=== PATIENT | male | born 1950 | race Caucasian/White ===

== ENCOUNTER 2019-04-13 08:00 | Inpatient (IN) | payer OTHER ==
[2019-04-08 12:18] VITALS: BMI 26.6
--- NOTE | 2019-04-13 08:03 | HP ---
Satellite [facility] - Chief Complaint Chief Complaint: left knee pain - Past Medical History Allergies/Adverse Reactions: Allergies Allergy/AdvReac Type Severity Reaction Status Date / Time No Known Drug Allergies Allergy Verified 04/08/19 12:11 - Current Medications Current Medications: Home Medications Medication Instructions Recorded NK [No Known Home Medication] 04/08/19 Satellite Physical Exam - Physical Examination General Appearance: Well Nourished, Well Developed, Alert & Oriented x3 ENT: Clear Lung: Normal air movement Heart: Regular rate & rhythm Extremities: Other (left knee- +swelling, + ttp ,decr rom, nvi xrays show grade 4 tricompartmental djd) Neurological: Intact, Alert, Oriented Satellite Impression/Plan - Impression/Plan Impression: left knee djd Operative Procedure: left fernando tkr Date to be Performed: 04/13/19
[2019-04-13] MEDS ORDERED: CEFAZOLIN 1 GM/D5W 1 GM/50 ML BAG IVPB ONE (10:34)
[2019-04-13] MEDS ORDERED: GABAPENTIN 300 MG CAPSULE (FP) PO ONE (10:34)
[2019-04-13] MEDS ORDERED: oxyCODONE HCL 10 MG SUSTAINED ACTING TABLET PO ONE (10:34)
[2019-04-13] MEDS ORDERED: CELECOXIB 200 MG CAPSULE PO ONE (10:34)
[2019-04-13] MEDS ORDERED: TRANEXAMIC ACID 1000 MG/10 ML VIAL IVPUSH ONE (10:34)
[2019-04-13] MEDS ORDERED: oxyCODONE HCL 10 MG SUSTAINED ACTING TABLET ONE (11:02)
[2019-04-13] MEDS ORDERED: GABAPENTIN 300 MG CAPSULE (FP) ONE (11:02)
[2019-04-13] MEDS ORDERED: CELECOXIB 200 MG CAPSULE ONE (11:02)
[2019-04-13] MEDS ORDERED: ceFAZolin SODIUM 1 GM VIAL ONE ×2 (11:59→12:23)
[2019-04-13] MEDS ORDERED: TRANEXAMIC ACID 1000 MG/10 ML VIAL ONE (11:59)
[2019-04-13] MEDS ORDERED: BUPIVACAINE LIPOSOME/PF (EXPAREL) 266 MG/20 ML VIAL ONE (12:10)
[2019-04-13] MEDS ORDERED: MIDAZOLAM HCL 2 MG/2 ML SINGLE DOSE VIAL ONE (12:10)
[2019-04-13] MEDS ORDERED: VANCOMYCIN 1,000 MG VIAL (RESTRICTED TO ID ONLY) ONE ×2 (12:23→14:54)
[2019-04-13] MEDS ORDERED: PROPOFOL 20 ML ONE (13:34)
[2019-04-13] MEDS ORDERED: ONDANSETRON 4 MG/2 ML VIAL IVPUSH PRN ×2 (13:55→15:30)
[2019-04-13] MEDS ORDERED: oxyCODONE HCL 5 MG TABLET PO PRN (13:55)
[2019-04-13] MEDS ORDERED: ACETAMINOPHEN 325 MG TABLET (FP) PO SCH (14:00)
[2019-04-13] MEDS ORDERED: LACTATED RINGERS SOLUTION 1,000 ML IV SCH ×2 (14:00→15:30)
[2019-04-13] MEDS ORDERED: VANCOMYCIN 1,000 MG VIAL (RESTRICTED TO ID ONLY) IVPB ONE (15:01)
[2019-04-13] MEDS ORDERED: MAG HYDROX/AL HYDROX/SIMETH 30 ML UNIT-DOSE CUP PO PRN (15:30)
[2019-04-13] MEDS ORDERED: MAGNESIUM HYDROX 2400MG/30ML ORAL SUSPENSION 30 ML CUP PO PRN (15:30)
--- NOTE | 2019-04-13 15:32 | OP ---
Operative Note - Note: Operative Date: 04/13/19 (sapna) Pre-Operative Diagnosis: left knee djd Operation: left fernando tkr Post-Operative Diagnosis: Same as Pre-op Surgeon: Feliciano Reddy Final Block Press Operator: Aj Seymour Anesthesiologist/ECHOCARDIOGRAPH TECHNICIAN: Manuel Ceja Anesthesia: Spinal, Local Specimens Removed: bone fragments Estimated Blood Loss (mls): 100 Operative Report Dictated: Yes
[2019-04-13] MEDS ORDERED: ACETAMINOPHEN 325 MG TABLET (FP) ONE (16:58)
--- NOTE | 2019-04-13 17:56 | CONSULT ---
Consult Consult Specialty:: IM Reason for Consultation:: post-op medical management - History of Present Illness Chief Complaint: left knee pain History of Present Illness: 69 yo man with chronic left knee DJD, getting worse recently, came in for TKR with Dr Feliciano Reddy. denies chest pain, palpitations, nausea, vomiting, diarrhea. - History Source History Provided By: Patient, Family Member Limitations to Obtaining History: No Limitations - Alcohol/Substance Use Hx Alcohol Use: Yes (SOCIALLY) - Smoking History Smoking history: Never smoked Have you smoked in the past 12 months: No Home Medications - Allergies Allergies/Adverse Reactions: Allergies Allergy/AdvReac Type Severity Reaction Status Date / Time No Known Drug Allergies Allergy Verified 04/08/19 12:11 - Home Medications Home Medications: Ambulatory Orders Aspirin [ASA -] 325 mg PO DAILY@0800 tablet 04/13/19 Oxycodone HCl/Acetaminophen [Percocet 5-325 mg Tablet -] 1 - 2 tab PO Q6H #50 tab MDD 8 04/13/19 Review of Systems - Review of Systems Constitutional: reports: No Symptoms Eyes: reports: No Symptoms HENT: reports: No Symptoms Neck: reports: No Symptoms Cardiovascular: reports: No Symptoms Respiratory: reports: No Symptoms Gastrointestinal: reports: No Symptoms Genitourinary: reports: No Symptoms Musculoskeletal: reports: Joint Pain (left knee pain) Integumentary: reports: No Symptoms Neurological: reports: No Symptoms Endocrine: reports: No Symptoms Hematology/Lymphatic: reports: No Symptoms Psychiatric: reports: No Symptoms Pain Intensity: 7 Physical Exam Vital Signs: Vital Signs Temperature 98.2 F 04/13/19 16:40 Pulse Rate 64 04/13/19 16:40 Respiratory Rate 14 04/13/19 16:40 Blood Pressure 129/68 04/13/19 16:40 O2 Sat by Pulse Oximetry (%) 99 04/13/19 16:40 Constitutional: Yes: Well Nourished, No Distress, Calm Eyes: Yes: WNL HENT: Yes: WNL Neck: Yes: WNL Cardiovascular: Yes: WNL Respiratory: Yes: WNL Gastrointestinal: Yes: WNL Renal/: Yes: WNL Musculoskeletal: Yes: Joint Stiffness Extremities: Yes: WNL Edema: No Peripheral Pulses WNL: Yes Wound/Incision: Yes: Clean/Dry, Well Approximated, Dressing Dry and Intact Neurological: Yes: WNL ...Motor Strength: WNL Assessment/Plan 68 yo man with left knee djd came in for left fernando tkr with Dr Reddy. no complications. cont pain management, incentive spirometry. on aspirin, oxycodone, tylenol. -GI, DVT prophylaxis. -PT/OT/OOB as tolerated. -ID: covered with Ancef -on stool softeners for opioid induced constipation. -awaiting labs -assessment and plan discussed with Pt, , and daughter at bedside. -DC planned for if no complications please call me at [phone] with any concerns
[2019-04-13] MEDS: oxyCODONE HCL 10 MG SUSTAINED ACTING TABLET PO SCH (21:21)
[2019-04-13] MEDS: SENNOSIDES/DOCUSATE COMBO (SENNA PLUS) TABLET (UD) PO SCH (21:21)
[2019-04-13] MEDS: CEFAZOLIN 1 GM/D5W 1 GM/50 ML BAG IVPB SCH (21:22)
[2019-04-13] MEDS: GABAPENTIN 300 MG CAPSULE (FP) PO SCH (21:22)
[2019-04-13] MEDS: oxyCODONE HCL 5 MG TABLET PO PRN (21:23)
[2019-04-14] MEDS: ACETAMINOPHEN 325 MG TABLET (FP) PO SCH ×4 (00:31→18:17)
[2019-04-14] MEDS: CEFAZOLIN 1 GM/D5W 1 GM/50 ML BAG IVPB SCH (06:47)
[2019-04-14] MEDS: oxyCODONE HCL 5 MG TABLET PO PRN ×2 (06:48→18:16)
[2019-04-14] MEDS: ASPIRIN 325 MG TABLET PO SCH (08:31)
[2019-04-14 08:37] LABS: HEMATOCRIT 36.7 % (35.4-49); HEMOGLOBIN 12.6 GM/dl (11.7-16.9); MCH 30.7 pg (25.7-33.7); MCHC 34.4 g/dl (32.0-35.9); MEAN CELL VOLUME 89.4 fl (80-96); PLATELET COUNT 149 K/MM3 (134-434); RDW 13.3 % (11.9-15.9); WHITE BLOOD COUNT 10.1 K/mm3 (4.0-10.8)
--- NOTE | 2019-04-14 10:01 | PN ---
Progress Note (short form) - Note Progress Note: Ortho Pt seen and examined s/p left fernando tkr pod #1 Selected Entries 04/14/19 03:00 Temperature 97.9 F Pulse Rate 66 Respiratory 18 Rate Blood Pressure 125/62 Laboratory Tests 04/14/19 07:30 WBC 10.1 Hgb 12.6 Hct 36.7 Plt Count 149 dressing c/d/i, calf soft, nt rom 0-70, nvi a/p PT dvt ppx pain control d/c home tomorrow if stable
[2019-04-14] MEDS: MULTIVITAMINS (DAILY MVI) TABLET (FP) PO SCH (10:39)
[2019-04-14] MEDS: oxyCODONE HCL 10 MG SUSTAINED ACTING TABLET PO SCH ×2 (10:40→21:41)
[2019-04-14] MEDS: GABAPENTIN 300 MG CAPSULE (FP) PO SCH ×2 (10:40→21:40)
[2019-04-14] MEDS: SENNOSIDES/DOCUSATE COMBO (SENNA PLUS) TABLET (UD) PO SCH ×2 (10:40→21:40)
[2019-04-14] MEDS: PANTOPRAZOLE 40 MG TABLET (FP) PO SCH (10:43)
--- NOTE | 2019-04-14 14:48 | PN ---
Progress Note, Physician Chief Complaint: right knee pain History of Present Illness: 69 yo man with chronic left knee DJD, getting worse recently, came in for TKR with Dr Feliciano Reddy. denies chest pain, palpitations, nausea, vomiting, diarrhea. - Current Medication List Current Medications: Active Medications Acetaminophen (Tylenol -) 650 mg PO Q6H [facility] Last Admin: 04/14/19 12:08 Dose: 650 mg Al Hydroxide/Mg Hydroxide (Mylanta Oral Suspension -) 30 ml PO Q4H PRN PRN Reason: DYSPEPSIA Aspirin (Asa -) 325 mg PO DAILY@0800 [facility] Last Admin: 04/14/19 08:31 Dose: 325 mg Fentanyl (Sublimaze Injection -) 50 mcg IVPUSH [id number] PRN PRN Reason: PAIN-PACU ORDER X 4 DOSES ONLY Gabapentin (Neurontin -) 300 mg PO BID [facility] Last Admin: 04/14/19 10:40 Dose: 300 mg Magnesium Hydroxide (Milk Of Magnesia -) 30 ml PO PRN PRN PRN Reason: CONSTIPATION Multivitamins/Minerals/Vitamin C (Tab-A-Vit -) 1 tab PO DAILY [facility] Last Admin: 04/14/19 10:39 Dose: 1 tab Ondansetron HCl (Zofran Injection) 4 mg IVPUSH Q6H PRN PRN Reason: NAUSEA AND/OR VOMITING Ondansetron HCl (Zofran Injection) 4 mg IVPUSH Q6H PRN PRN Reason: NAUSEA Oxycodone HCl (Roxicodone -) 5 mg PO Q3H PRN PRN Reason: PAIN LEVEL 1-5 Last Admin: 04/14/19 06:48 Dose: 5 mg Oxycodone HCl (Roxicodone -) 10 mg PO Q3H PRN PRN Reason: PAIN LEVEL 6-10 Oxycodone HCl (Oxycontin -) 10 mg PO BID [facility] Stop: 04/16/19 13:55 Last Admin: 04/14/19 10:40 Dose: 10 mg Pantoprazole Sodium (Protonix -) 40 mg PO DAILY [facility] Last Admin: 04/14/19 10:43 Dose: 40 mg Senna/Docusate Sodium (Pericolace -) 2 tablet PO BID [facility] Last Admin: 04/14/19 10:40 Dose: 2 tablet - Objective Vital Signs: Vital Signs Temperature 98.6 F 04/14/19 13:58 Pulse Rate 75 04/14/19 13:58 Respiratory Rate 18 04/14/19 13:58 Blood Pressure 147/68 04/14/19 13:58 O2 Sat by Pulse Oximetry (%) 99 04/14/19 13:58 Constitutional: Yes: Well Nourished, No Distress, Calm Eyes: Yes: WNL HENT: Yes: WNL Neck: Yes: WNL Cardiovascular: Yes: WNL Respiratory: Yes: WNL Gastrointestinal: Yes: WNL Genitourinary: Yes: WNL Musculoskeletal: Yes: Joint Stiffness Extremities: Yes: WNL Edema: No Peripheral Pulses WNL: Yes Integumentary: Yes: WNL Wound/Incision: Yes: Clean/Dry, Well Approximated, Dressing Dry and Intact Neurological: Yes: WNL ...Motor Strength: WNL Psychiatric: Yes: WNL Labs: CBC, BMP 04/14/19 07:30 Assessment/Plan 68 yo man with left knee djd came in for left fernando tkr with Dr Reddy. no complications. cont pain management, incentive spirometry. on aspirin, oxycodone, tylenol. -GI, DVT prophylaxis. -PT/OT/OOB as tolerated. -ID: covered with Ancef -on stool softeners for opioid induced constipation. -awaiting labs -assessment and plan discussed with Pt, , and daughter at bedside. meds and blood work reviewed -DC planned for Tomorrow please call me at [phone] with any concerns
--- NOTE | 2019-04-14 16:58 | SPEC ---
DATE OF OPERATION: 04/13/2019 PREOPERATIVE DIAGNOSIS: Degenerative joint disease, left knee. POSTOPERATIVE DIAGNOSIS: Degenerative joint disease, left knee. PROCEDURE: Left total knee replacement with robotic-assisted navigation (Makoplasty). SURGICAL ATTENDING: Feliciano Reddy M.D. DIE CASTING SUPERVISOR: Gail Sanderson ANESTHESIA: Regional and spinal. CLOSURE: A Triathlon cemented total knee system with a 5 femur, 5 tibia, 11 polyethylene, 35 patella, number 1 Vicryl fascia, 0 and 2-0 subcutaneous, 3-0 Monocryl subcuticular with skin glue for skin, 4-0 undyed Vicryl for pin site. ESTIMATED BLOOD LOSS: Negligible. COMPLICATIONS: None. CONDITION: To recovery room in stable condition. DESCRIPTION OF OPERATIVE PROCEDURE: Patient was taken to the operating room on April 13, 2019. Regional and general anesthesia was administered by the anesthesiologist. IV Kefzol and TXA were administered by the anesthesiologist. Well-padded pneumatic tourniquet was placed on the proximal thigh. The left lower extremity was prepped and draped in the usual sterile fashion. The leg was exsanguinated with an Esmarch bandage, and tourniquet was inflated to 275 mmHg. A 12 to 15-cm longitudinal midline incision was incised while centered over the patella. The dissection was carried down to the level of the extensor mechanism with sufficient flaps made to adequately perform the procedure. A medial parapatellar arthrotomy was then performed. We made a cuff of tissue on the patella for later closure. The patella was inverted, the knee was flexed up. The fat pad was excised. The subperiosteal dissection was on the anteromedial proximal tibia around towards the direction of the MCL. The ACL and the PCL were transected and debrided. The meniscal remnants of the medial and lateral meniscus were debrided and removed. This allowed the knee to be able to "be brought forward." The checkpoints were malleted into the tibia and into the femur. Two threaded pins were drilled anteroposteriorly proximal to the knee through the previous incision, through the anterior cortex, then just engaging the posterior cortex. To these pins was assembled the femoral navigation array. One handbreadth below the tibial tubercle, 2 stab incisions were used to drill 2 threaded pins in parallel fashion into the tibia, again through the anterior cortex and just engaging the posterior cortex. To these pins was fastened the tibial arrays. The knee was then registered with the navigation device with center of rotation of the hip, medial and lateral malleoli, both checkpoints, and multiple points on both the femur and the tibia to ensure excellent registration. The navigation device was directed off the "top of the bubbles" on both the femur and the tibia. The navigation passed within less than 0.5 mm to plan. The knee was then thoroughly inspected to remove all osteophytes both medially, laterally, and on the femur and the tibia, and whatever osteophytes were available for dissection. The knee was then taken to extension and to flexion, and stressed in both varus and valgus to assess flexion gaps. The virtual position of the components on the navigation device were then manipulated to optimize the position and to ensure equal gaps in both flexion and extension, and both medially and laterally. The robot was then brought into the field and was registered. The cuts were then made both on the femur and on the tibia as to plan. All osteophytes posteriorly were then removed as well. The gaps were then measured again in flexion and extension to be equal in both flexion and extension and medial and laterally. The femoral notch was then made, as we were doing a posterior stabilizing component, with the appropriate sized box. Trial reduction of the femur achieved excellent [id number] fit. A tibial baseplate of appropriate polyethylene thickness was "floated in the knee." It was ensured to be in the excellent position by navigation devices and was pinned in place. The knee was taken through a range of motion, and found to have excellent stability throughout flexion and extension. The patella was calibrated for thickness and osteotomized down to the appropriate level. The appropriate lollipop was used to drill the lug holes in the patella and the trial button was applied. The knee was taken through a range of motion and found to have excellent tracking of the patella, and patella from full extension to full flexion. Trial components were removed, the keel was punched and drilled, and a sclerotic bone on the tibia was drilled to help with cement interdigitation. The knee was thoroughly irrigated with the pulse antibiotic lead technical writer. The real components were then cemented in using monitored arrangement cement techniques with antibiotic cement, and pressurization and extension. After the cement was hardened, the knee was thoroughly inspected to remove any extra cement. The real polyethylene component was then clipped into place. Range of motion, stability, and tracking were as described earlier. The checkpoints and the pins were removed. The knee was thoroughly irrigated with antibiotic irrigation. Vancomycin powder was placed into the knee for antibiotic prophylaxis. The medial parapatellar arthrotomy was then closed using number 1 Vicryl interrupted suture. After closure of the deep layer, the knee was taken through a range of motion, and found to have excellent stability of the patella with no dislocation and no undue tension on the repair. The subcutaneous was pulse antibiotic irrigated, and was then closed with 2-0 Vicryl, 3-0 Monocryl subcuticular with the skin glue for the skin. The distal tibial pin site was irrigated thoroughly as well and then closed with 4-0 undyed Vicryl. A sterile Aquacel dressing was applied, followed by a Lopez dressing. Tourniquet was deflated. Total tourniquet time was approximately 24 minutes. No complications. Patient was awakened from anesthesia and transferred to recovery room in stable condition. Postoperative x-rays revealed excellent position of the components. Jovanny [id number]
[2019-04-15] MEDS: ACETAMINOPHEN 325 MG TABLET (FP) PO SCH ×2 (05:40)
[2019-04-15 06:45] VITALS: BP 132/61; PULSE 97; TEMP 99.6
[2019-04-15 07:58] LABS: HEMATOCRIT 32.4 % (35.4-49); HEMOGLOBIN 11.2 GM/dl (11.7-16.9); MCH 30.9 pg (25.7-33.7); MCHC 34.6 g/dl (32.0-35.9); MEAN CELL VOLUME 89.5 fl (80-96); PLATELET COUNT 124 K/MM3 (134-434); RBC 3.63 M/mm3 (4.00-5.60); RDW 13.6 % (11.9-15.9); WHITE BLOOD COUNT 11.1 K/mm3 (4.0-10.8)
--- NOTE | 2019-04-15 08:22 | PN ---
Progress Note (short form) - Note Progress Note: Ortho Pt seen and examined s/p left fernando tkr pod #2 Selected Entries 04/15/19 06:44 Temperature 99.6 F Pulse Rate 97 H Respiratory 20 Rate Blood Pressure 132/61 Laboratory Tests 04/15/19 07:21 WBC 11.1 H Hgb 11.2 L Hct 32.4 L Plt Count 124 L dressing with drainage but not to borders, calf soft, nt rom 0-70, nvi a/p PT dvt ppx pain control d/c home today f/u in 1 week
--- NOTE | 2019-04-15 08:22 | DS ---
Physical Examination Vital Signs: Vital Signs Temperature 99.6 F 04/15/19 06:44 Pulse Rate 97 H 04/15/19 06:44 Respiratory Rate 20 04/15/19 06:44 Blood Pressure 132/61 04/15/19 06:44 O2 Sat by Pulse Oximetry (%) 97 04/15/19 06:43 Labs: CBC, BMP 04/15/19 07:21 Discharge Summary Reason For Visit: OSTEOARTHRITIS Procedures: Principal: left tkr Hospital Course: admitted for elective left fernando tkr, uneventful post-op, stable for d/c Condition: Good - Instructions Diet, Activity, Other Instructions: Post-op Instructions-Total Knee Replacement Call the office for a follow-up appointment in 1 week - [phone] Aspirin 325mg daily for 6 weeks. Pain medication was sent into your pharmacy. Apply Graduated Compression Stockings (TEDs) to both lower extremities- remove daily for hygiene ONLY Apply Sequential Compression Device (SCDs) to both Lower extremities remove for PT and hygiene ONLY Apply cold packs to affected area for 15 minutes every 2 hours. Physical Therapist will come to your home for the first 5 days. You will be set up with outpatient PT at your first post-operative visit. Patient may ambulate as tolerated-encourage self care (at least every 2-3 hours while awake) with walker or cane Maintain Aquacel (waterproof) dressing to operative wound (will be removed by surgeon at first office visit) Shower with Aquacel dressing in place-if Aquacel integrity compromised, remove and apply dry sterile dressing and notify Orthopedist. DO NOT SHOWER unless Orthopedists approves without Aquacel dressing CONTACT THE OFFICE FOR ANY CHANGE IN YOUR CONDITION (for example-fever greater than 102 degrees, excessive bleeding from operative site, purulent drainage, severe swelling or pain) GO TO THE EMERGENCY ROOM IF THERE IS A MEDICAL EMERGENCY Knee Precautions: * Keep a rolled towel under affected heel while in bed or chair (to keep knee in extension) * Keep affected leg elevated except during mealtimes * DO NOT PLACE PILLOW UNDER AFFECTED KNEE * If you have any questions, please do not hesitate to call the office - . Referrals: Feliciano Reddy MD [Staff Physician] - Disposition: VNS/HOME HEALTH CARE - Home Medications Comprehensive Discharge Medication List: Ambulatory Orders Aspirin [ASA -] 325 mg PO DAILY@0800 tablet 04/13/19 Oxycodone HCl/Acetaminophen [Percocet 5-325 mg Tablet -] 1 - 2 tab PO Q6H #50 tab MDD 8 04/13/19
--- NOTE | 2019-04-15 08:56 | PN ---
Progress Note, Physician Chief Complaint: right knee pain History of Present Illness: 69 yo man with chronic left knee DJD, getting worse recently, came in for TKR with Dr Feliciano Reddy. denies chest pain, palpitations, nausea, vomiting, diarrhea. - Current Medication List Current Medications: Active Medications Acetaminophen (Tylenol -) 650 mg PO Q6H [facility] Last Admin: 04/15/19 05:40 Dose: 650 mg Al Hydroxide/Mg Hydroxide (Mylanta Oral Suspension -) 30 ml PO Q4H PRN PRN Reason: DYSPEPSIA Aspirin (Asa -) 325 mg PO DAILY@0800 [facility] Last Admin: 04/14/19 08:31 Dose: 325 mg Fentanyl (Sublimaze Injection -) 50 mcg IVPUSH [id number] PRN PRN Reason: PAIN-PACU ORDER X 4 DOSES ONLY Gabapentin (Neurontin -) 300 mg PO BID [facility] Last Admin: 04/14/19 21:40 Dose: 300 mg Magnesium Hydroxide (Milk Of Magnesia -) 30 ml PO PRN PRN PRN Reason: CONSTIPATION Multivitamins/Minerals/Vitamin C (Tab-A-Vit -) 1 tab PO DAILY [facility] Last Admin: 04/14/19 10:39 Dose: 1 tab Ondansetron HCl (Zofran Injection) 4 mg IVPUSH Q6H PRN PRN Reason: NAUSEA AND/OR VOMITING Ondansetron HCl (Zofran Injection) 4 mg IVPUSH Q6H PRN PRN Reason: NAUSEA Oxycodone HCl (Roxicodone -) 5 mg PO Q3H PRN PRN Reason: PAIN LEVEL 1-5 Last Admin: 04/14/19 18:16 Dose: 5 mg Oxycodone HCl (Roxicodone -) 10 mg PO Q3H PRN PRN Reason: PAIN LEVEL 6-10 Last Admin: 04/15/19 06:34 Dose: 10 mg Oxycodone HCl (Oxycontin -) 10 mg PO BID [facility] Stop: 04/16/19 13:55 Last Admin: 04/14/19 21:41 Dose: 10 mg Pantoprazole Sodium (Protonix -) 40 mg PO DAILY [facility] Last Admin: 04/14/19 10:43 Dose: 40 mg Senna/Docusate Sodium (Pericolace -) 2 tablet PO BID [facility] Last Admin: 04/14/19 21:40 Dose: 2 tablet - Objective Vital Signs: Vital Signs Temperature 99.6 F 04/15/19 06:44 Pulse Rate 97 H 04/15/19 06:44 Respiratory Rate 20 04/15/19 06:44 Blood Pressure 132/61 04/15/19 06:44 O2 Sat by Pulse Oximetry (%) 97 04/15/19 06:43 Constitutional: Yes: Well Nourished, No Distress, Calm Eyes: Yes: WNL HENT: Yes: WNL Neck: Yes: WNL Cardiovascular: Yes: WNL Respiratory: Yes: WNL Gastrointestinal: Yes: WNL Genitourinary: Yes: WNL Musculoskeletal: Yes: Joint Stiffness Extremities: Yes: WNL Edema: No Peripheral Pulses WNL: Yes Integumentary: Yes: WNL Wound/Incision: Yes: Clean/Dry, Well Approximated, Dressing Dry and Intact Neurological: Yes: WNL ...Motor Strength: WNL Psychiatric: Yes: WNL Labs: CBC, BMP 04/15/19 07:21 Assessment/Plan 68 yo man with left knee djd came in for left fernando tkr with Dr Reddy. no complications. cont pain management, incentive spirometry. on aspirin, oxycodone. -GI, DVT prophylaxis. -PT/OT/OOB as tolerated. -ID: covered with Ancef -on stool softeners for opioid induced constipation. -blood work reviewed. WNL. -assessment and plan discussed with Pt, , and daughter at bedside. meds and blood work reviewed -DC planned for Today please call me at [phone] with any concerns
[2019-04-15] MEDS: GABAPENTIN 300 MG CAPSULE (FP) PO SCH (09:17)
[2019-04-15] MEDS: ASPIRIN 325 MG TABLET PO SCH (09:17)
[2019-04-15] MEDS: MULTIVITAMINS (DAILY MVI) TABLET (FP) PO SCH (09:17)
[2019-04-15] MEDS: SENNOSIDES/DOCUSATE COMBO (SENNA PLUS) TABLET (UD) PO SCH (09:18)
[2019-04-15] MEDS: oxyCODONE HCL 10 MG SUSTAINED ACTING TABLET PO SCH (09:18)
[2019-04-15] MEDS: PANTOPRAZOLE 40 MG TABLET (FP) PO SCH (10:00)
--- NOTE | 2019-04-20 16:16 | PATH ---
Surgical Pathology Report Patient Name: CARLOS SALAMANCA Med. Rec. #: [id number] /Age/Gender: 1950 (Age: 68) / M Account: [id number] [facility] Taken: 04/13/2019 Received: 04/13/2019 Reported: 04/20/2019 Physicians: Feliciano Reddy M.D. Specimen(s) Received LEFT KNEE BONES Clinical History Osteoarthritis left knee Final Diagnosis KNEE BONES, LEFT, TOTAL HIP REPLACEMENT: DEGENERATIVE JOINT DISEASE. Electronically Signed Brit Jurado M.D. Gross Description Received in formalin labeled "left knee bones," is a 10.5 x 9.5 x 1.8 cm aggregate of multiple portions of bone and soft tissue. The tibial plateau measures 7.8 x 5.3 x 1.8 cm. There are multiple areas of eburnation present, measuring up to 2.5 cm in greatest dimension. The remaining articular surfaces are dailey-brown and focally granular. The underlying trabecular bone is yellow and hard. Bench Molder sections are submitted in one cassette, following decalcification. /04/15/2019 [facility]04/15/2019
== END 2019-04-15 13:31 | disposition home health service (06) | DRG 470 ==
LOC: FM/S 10:18
PROVIDERS: ADMIT Orthopaedic Surgery; ATTEND Orthopaedic Surgery
PROC: 8E0Y0CZ Robotic Assisted Procedure of Lower Extremity, Open Approach (ICD-10-PCS; 2019-04-13)
PROC: 0SRD0J9 Replacement of Left Knee Joint with Synthetic Substitute, Cemented, Open Approach (ICD-10-PCS; principal; 2019-04-13 13:45)
DX: M17.12 Unilateral primary osteoarthritis, left knee (principal); K59.03 Drug induced constipation
CPT/HCPCS: 36415; 73560-TC-LT-FY; 85027; 88304-TC; 88311-TC; 94760; 97116-GP; 97163-GP